=== PATIENT | male | born 1990 | race African-American/Black ===

== ENCOUNTER 2016-10-12 12:27 | Emergency (ER) | payer SELFPAY ==
[~2016-10-12] VITALS: Ht 170.2 cm; Wt 82.0 kg
[2016-10-12 12:46] VITALS: BP 167/99
[2016-10-12] MEDS ORDERED: KETOROLAC 60MG/2ML VIAL IM ONE (13:45)
== END 2016-10-12 16:08 | disposition home or self-care (01) ==
LOC: ER 15:38
DX: S42.201A Unspecified fracture of upper end of right humerus, initial encounter for closed fracture (principal); W22.8XXA Striking against or struck by other objects, initial encounter; Y93.89 Activity, other specified; Y92.89 Other specified places as the place of occurrence of the external cause; Y99.8 Other external cause status; F17.200 Nicotine dependence, unspecified, uncomplicated
CPT/HCPCS: 29130; 73140; 96372; 99284; J1885; Z7610